=== PATIENT | female | born 1955 | race Hispanic/Latino ===

== ENCOUNTER → 2022-06-14 | Outpatient (CLI) | payer BC, OTHER | END | disposition home or self-care (01) | LOC: RAH 08:28 | PROVIDERS: ATTEND Internal Medicine | DX: K44.9 Diaphragmatic hernia without obstruction or gangrene (principal); R10.13 Epigastric pain; K21.9 Gastro-esophageal reflux disease without esophagitis | CPT/HCPCS: 74240 ==

== ENCOUNTER → 2024-09-26 | Outpatient (CLI) | payer OTHER, MEDICARE ==
--- NOTE | 2024-09-26 11:11 | HMCIMG ---
ESOPHAGUS REASON: DIAPHRAGMATIC HERNIA W/O OBSTRUCTION OR GANGRENE COMPARISON: None TECHNIQUE: Routine cine esophagram was performed with fluoroscopic observation. Fluoroscopy time was 0.7 minutes. 5 short cine sequences were acquired. FINDINGS: There is normal esophageal peristalsis. There is some pooling in the vallecula and piriform sinuses. There was no aspiration during the exam. There is normal esophageal peristalsis. There is no evidence of mass or ulcer or obstructing lesion. There is a small sliding hiatus are new. No reflux was seen during the exam. IMPRESSION: 1. Small sliding hiatal hernia. 2. Piriform sinus and vallecular pooling following swallowing, no evidence of aspiration during the exam.
== END | disposition home or self-care (01) ==
LOC: RAH 08:34
PROVIDERS: ATTEND Student in an Organized Health Care Education/Training Program
DX: K44.9 Diaphragmatic hernia without obstruction or gangrene (principal)
CPT/HCPCS: 74220